=== PATIENT | male | born 1950 | race Caucasian/White ===

== ENCOUNTER 2017-01-20 15:15 | Emergency (ER) | payer MEDICARE, OTHER ==
[~2017-01-20] VITALS: Ht 172.7 cm; Wt 106.5 kg
[2017-01-20 15:18] VITALS: BP 112/46; PULSE 86; RESP 22; TEMP 98.8; O2SAT 98
[2017-01-20] MEDS ORDERED: METF500T PO (15:52)
[2017-01-20] MEDS ORDERED: PREG25 PO (15:52)
[2017-01-20 16:28] LABS: AUTOMATED NEUTROPHIL # 4.6 TH/MM3 (1.8-7.7); BASOPHIL % 0.3 % (0.0-2.0); EOSINOPHIL # 0.1 TH/MM3 (0-0.4); EOSINOPHIL % 1.6 % (0.0-4.0); LYMPH % 19.2 % (9.0-44.0); LYMPHOCYTE # 1.2 TH/MM3 (1.0-4.8); MEAN CELL VOLUME 90.2 FL (80.0-100.0); MEAN CORPUSCULAR HEMOGLOBIN 28.7 PG (27.0-34.0); MEAN CORPUSCULAR HGB CONC 31.8 % (32.0-36.0); MONO % 8.7 % (0.0-8.0); NEUT % 70.2 % (16.0-70.0); PLATELET COUNT 280 TH/MM3 (150-450); RED BLOOD COUNT 4.43 MIL/MM3 (4.50-5.90); RED CELL DISTRIBUTION WIDTH 13.9 % (11.6-17.2); WHITE BLOOD COUNT 6.5 TH/MM3 (4.0-11.0)
[2017-01-20 16:41] LABS: CHLORIDE 93 MEQ/L (98-107); POTASSIUM 4.2 MEQ/L (3.5-5.1); SODIUM (NA) 138 MEQ/L (136-145)
[2017-01-20 16:44] LABS: ANION GAP 1 MEQ/L (5-15); BICARBONATE 44.3 MEQ/L (21.0-32.0)
[2017-01-20 16:45] LABS: BLOOD UREA NITROGEN 15 MG/DL (7-18)
--- NOTE | 2017-01-20 16:45 | PD ---
HPI Chief Complaint: Fall Time Seen by Provider: 15:50 Travel History International Travel<30 days: No Contact w/Intl Traveler<30days: No Traveled to known affect area: No History of Present Illness HPI 66yo M with PMH of COPD on home O2 4L NC, DM, diabetic neuropathy presents to the ED with c/o left rib pain s/p fall yesterday. Pt was holding his oxygen tank and other things and tried to open the door at the same time but dropped his things and his left ribs fell onto a milk jug causing it to spill. Pt denies any head injury or LOC. He states he does feel a little more sob than normal. Denies any fever, cough, chest pain, n/v, abdominal pain, focal weakness or numbness. Pt has had lower ext swelling before but said his left leg became more swollen in the last few days. Denies any history of DVT or PE. Used to follow with convenience store clerk Dr. Bustillos. PFSH Past Medical History COPD: Yes Diabetes: Yes (type 2) Patient Takes Glucophage: Yes Diminished Hearing: No Hypertension: Yes Neurologic: Yes (NUEROPATHY) Respiratory: Yes (copd on oxygen at home) Immunizations Current: Yes Tetanus Vaccination: < 5 Years Influenza Vaccination: Yes Past Surgical History Abdominal Surgery: Yes (POLYPS REMOVED FROM INTESTINES) Social History Alcohol Use: No Tobacco Use: Yes (NOT EVERYDAY) Substance Use: No Allergies-Medications (Allergen,Severity, Reaction): Coded Allergies: No Known Allergies (Unverified , 01/20/17) Reported Meds & Prescriptions Reported Meds & Active Scripts Active Ibuprofen 600 Mg Tab 600 Mg PO Q8HR PRN Reported Lyrica (Pregabalin) 25 Mg Cap 25 Mg PO BID Metformin (Metformin HCl) 500 Mg Tab 500 Mg PO BIDPC With meals Review of Systems Except as stated in HPI: all other systems reviewed are Neg Physical Exam Narrative GENERAL: 66yo M not in distress. SKIN: Focused skin assessment warm/dry. HEAD: Atraumatic. Normocephalic. EYES: Pupils equal and round. No scleral icterus. No injection or drainage. ENT: No nasal bleeding or discharge. Mucous membranes pink and moist. NECK: Trachea midline. No JVD. CARDIOVASCULAR: Regular rate and rhythm. No murmur appreciated. RESPIRATORY: No accessory muscle use. Clear to auscultation. Breath sounds equal bilaterally. GASTROINTESTINAL: Abdomen soft, non-tender, nondistended. No rebound tenderness or guarding. MUSCULOSKELETAL: +TTP left lower rib. No ecchymoses or erythema. Bilateral lower ext: +Pitting edema, left more than right. DP 2+. Sensation intact. NEUROLOGICAL: Awake and alert. No obvious cranial nerve deficits. Motor grossly within normal limits. Normal speech. PSYCHIATRIC: Appropriate mood and affect; insight and judgment normal. Data Data Last Documented VS Vital Signs Date Time Temp Pulse Resp B/P Pulse Ox O2 Delivery O2 Flow Rate FiO2 01/20/17 15:18 98.8 86 22 112/46 98 Orders Ribs, Uni (W/Exp Cxr-Min 3vw) (01/20/17 ) Complete Blood Count With Diff (01/20/17 16:05) Comprehensive Metabolic Panel (01/20/17 16:05) B-Type Natriuretic Peptide (01/20/17 16:05) Prothrombin Time / Inr (Pt) (01/20/17 16:05) Act Partial Throm Time (Ptt) (01/20/17 16:05) Troponin I (01/20/17 16:05) Electrocardiogram (01/20/17 ) Us Leg Venous Doppler Bilat (01/20/17 ) Lidocaine 5% Patch.12 Hr (Lidoderm 5% Pa (01/20/17 17:45) Ketorolac Inj (Toradol Inj) (01/20/17 18:45) Labs Laboratory Tests Test 01/20/17 16:17 White Blood Count 6.5 TH/MM3 Red Blood Count 4.43 MIL/MM3 Hemoglobin 12.7 GM/DL Hematocrit 40.0 % Mean Corpuscular Volume 90.2 FL Mean Corpuscular Hemoglobin 28.7 PG Mean Corpuscular Hemoglobin 31.8 % Concent Red Cell Distribution Width 13.9 % Platelet Count 280 TH/MM3 Mean Platelet Volume 8.7 FL Neutrophils (%) (Auto) 70.2 % Lymphocytes (%) (Auto) 19.2 % Monocytes (%) (Auto) 8.7 % Eosinophils (%) (Auto) 1.6 % Basophils (%) (Auto) 0.3 % Neutrophils # (Auto) 4.6 TH/MM3 Lymphocytes # (Auto) 1.2 TH/MM3 Monocytes # (Auto) 0.6 TH/MM3 Eosinophils # (Auto) 0.1 TH/MM3 Basophils # (Auto) 0.0 TH/MM3 CBC Comment DIFF FINAL Differential Comment Prothrombin Time 10.7 SEC Prothromb Time International 1.0 RATIO Ratio Activated Partial 27.4 SEC Thromboplast Time Sodium Level 138 MEQ/L Potassium Level 4.2 MEQ/L Chloride Level 93 MEQ/L Carbon Dioxide Level 44.3 MEQ/L Anion Gap 1 MEQ/L Blood Urea Nitrogen 15 MG/DL Creatinine 0.50 MG/DL Estimat Glomerular Filtration 167 ML/MIN Rate Random Glucose 87 MG/DL Calcium Level 8.5 MG/DL Total Bilirubin 0.4 MG/DL Aspartate Amino Transf 20 U/L (AST/SGOT) Alanine Aminotransferase 29 U/L (ALT/SGPT) Alkaline Phosphatase 74 U/L Troponin I LESS THAN 0.02 NG/ML B-Type Natriuretic Peptide 30 PG/ML Total Protein 7.3 GM/DL Albumin 3.5 GM/DL MDM Medical Decision Making Medical Screen Exam Complete: Yes Emergency Medical Condition: Yes Interpretation(s) EKG: NSR 78bpm. Normal axis. RBBB. TWI III, aVF. Differential Diagnosis Rib fractures vs. PTX vs. pneumonia vs. COPD DVT vs. cellulitis vs. Bakers cyst vs. CHF vs. renal or liver dysfunction Narrative Course 66yo M with c/o left sided rib pain after mechanical fall yesterday. Labs reviewed, no leukocytosis. BNP normal. Troponin negative. CO2 elevated at 44.3 but pt has chronic COPD and this is likely his baseline. Pt is saturating at 98% on 4L NC and this is what he uses at home. No wheezing on exam. CXR showed left basal atelectasis. Multiple left sided rib fractures. Ordered lidoderm patch. Pt reevaluated at bedside and states he has old left rib fractures. He states that he is at his baseline sob and does not feel more sob than normal. US bilateral lower ext showed negative exam with no DVT. Return precautions given. Upon discharge, pt states he ran out of his oxycodone and will see his PMD in 2 days. Since he does have rib fractures, will give a few percocet. Diagnosis Primary Impression: Ribs, multiple fractures Qualified Code: S22.42XA - Closed fracture of multiple ribs of left side, initial encounter Patient Instructions: General Instructions Departure Forms: Tests/Procedures Additional Instructions: Please follow up with your PMD in 3-7 days. Return to the ED if symptoms worsen. Med/Other Pt SpecificInfo: Prescription(s) given Scripts Oxycodone-Acetaminophen (Percocet)5-325 mg Tab1 Tab PO Q6H PRN (PAIN) #7 TAB Ref 0 Prov:Sylvia Simmons DO 01/20/17 Ibuprofen 600 Mg [id number] Mg PO Q8HR PRN (PAIN) #20 TAB Ref 0 Prov:Sylvia Simmons DO 01/20/17 Disposition: 01 DISCHARGE HOME Condition: Stable Sylvia Simmons DO Jan 20, 2017 16:45
[2017-01-20 16:47] LABS: ALT (GPT) 29 U/L (12-78); APTT (PATIENT) 27.4 SEC (24.3-30.1); AST (GOT) 20 U/L (15-37); PROTHROMBIN TIME - PATIENT 10.7 SEC (9.8-11.6)
[2017-01-20 16:48] LABS: GLOMERULAR FILTRATION RATE 167 ML/MIN (>89); HEMO FLAGS DIFF FINAL
[2017-01-20 16:49] LABS: TOTAL BILIRUBIN ADULT 0.4 MG/DL (0.2-1.0)
[2017-01-20 16:50] LABS: ALKALINE PHOSPHATASE 74 U/L (45-117)
--- NOTE | 2017-01-20 17:19 | RADRPT ---
EXAM DATE/TIME: 01/20/2017 16:29 [facility] COMPARISON: No previous studies available for comparison. INDICATIONS : Fell, has pain left side chest MEDICAL HISTORY : Chronic obstructive pulmonary disease. Emphysema. SURGICAL HISTORY : None. ENCOUNTER: Initial ACUITY: 2 days PAIN SCORE: 2/10 LOCATION: Left chest FINDINGS: Multiple views of the left ribs were performed. There is no evidence of displaced fracture. No dest ructive lesions or areas of periosteal thickening are seen. Expiratory view of the chest is negative for pneumothorax. Left basilar density. Multiple left-sided rib fractures. CONCLUSION: Left basal atelectasis. Multiple left-sided rib fractures. Efren Murguia MD on January 20, 2017 at 17:16 Board Certified Radiologist. This report was verified electronically.
[2017-01-20] MEDS ORDERED: LIDOCAINE HCL 5% PATCH T-DERMAL ONE (17:45)
--- NOTE | 2017-01-20 18:31 | RADRPT ---
EXAM DATE/TIME: 01/20/2017 17:37 [facility] COMPARISON: No previous studies available for comparison. INDICATIONS : Bilateral leg edema. MEDICAL HISTORY : Chronic obstructive pulmonary disease. Hypertension. Nueropathy. Diabetes. SURGICAL HISTORY : Intestinal polyp removal. ENCOUNTER: Initial ACUITY: 3 days PAIN SCORE: 2/10 LOCATION: Bilateral legs. TECHNIQUE: Venous ultrasound of the left and right leg was performed from the inguinal ligament to the proximal calf. Real-time, color Doppler and spectral tracing, compression and augmentation techniques were us ed. FINDINGS: RIGHT LEG: There is normal compressibility of the deep venous system from the inguinal region to the proximal ca lf. No echogenic clot is seen in the lumen of the common femoral, femoral, popliteal, and posterior tibial veins. There is a normal response of the venous system to proximal and distal augmentation an d respiration. LEFT LEG: There is normal compressibility of the deep venous system from the inguinal region to the proximal ca lf. No echogenic clot is seen in the lumen of the common femoral, femoral, popliteal, and posterior tibial veins. There is a normal response of the venous system to proximal and distal augmentation an d respiration. CONCLUSION: Negative exam with no evidence of deep venous thrombosis. Carlos Gonzalez MD on January 20, 2017 at 18:29 Board Certified Radiologist. This report was verified electronically.
[2017-01-20] MEDS ORDERED: IBUP-232 PO (18:42)
[2017-01-20] MEDS ORDERED: KETOROLAC TROMETHAMINE 60 MG/2 ML (IM) VIAL IM ONE (18:45)
[2017-01-20] MEDS ORDERED: PERC5TAB12 PO (18:49)
[2017-01-20 19:05] VITALS: BP 116/52; PULSE 84; RESP 20; O2SAT 98
--- NOTE | 2017-01-20 21:45 | EKG ---
Date Performed: 01/20/2017 Time Performed: 17:08:18 PTAGE: 66 years EKG: Sinus rhythm WITH SHORT OR INTERVAL RIGHT BUNDLE BRANCH BLOCK ABNORMAL ECG INTERPRETATION BASED ON A DEFAULT AGE OF 40 YEARS NO PREVIOUS TRACING DOCTOR: Jaskaran Carreon Interpretating Date/Time 01/20/2017 21:44:03
== END 2017-01-20 19:25 | disposition home or self-care (01) ==
LOC: PHED 15:15
DX: S22.42XA Multiple fractures of ribs, left side, initial encounter for closed fracture (principal); J44.9 Chronic obstructive pulmonary disease, unspecified; I10 Essential (primary) hypertension; W19.XXXA Unspecified fall, initial encounter; Z72.0 Tobacco use; Z99.81 Dependence on supplemental oxygen
CPT/HCPCS: 71101; 80053; 83880; 84484; 85025; 85610; 85730; 93005; 93970; 96372; 99285; J1885

== ENCOUNTER 2017-03-21 06:55 | Inpatient (IN) | payer MEDICARE, OTHER ==
[2017-03-21] VITALS (15 sets, daily range): BP systolic 101–145; BP diastolic 50–63; PULSE 78–111; RESP 16–34; TEMP 98–98.8; O2SAT 72–97
[~2017-03-21] VITALS: Ht 177.8 cm; Wt 95.0 kg
[~2017-03-21 06:55] MED LIST: IBUP-232 PO; METF500T PO; PERC5TAB12 PO; PREG25 PO
[2017-03-21] MEDS ORDERED: methylPREDNISolone SOD SUCC 125 MG/2 ML VIAL IVP ONE (07:15)
[2017-03-21] MEDS: RESP: ALBUTEROL 2.5 MG/IPRATROPIUM 0.5 MG NEB (SCH) INH ×4 (07:23→21:02)
--- NOTE | 2017-03-21 07:48 | PD ---
HPI Chief Complaint: Respiratory Symptoms Time Seen by Provider: 07:08 Travel History International Travel<30 days: No Contact w/Intl Traveler<30days: No Traveled to known affect area: No History of Present Illness HPI This is a 66-year-old male who presents to the emergency department with a history of COPD on 6 L of oxygen at home who reports that he's been increasingly short of breath since this morning. He says he always has white and clear. Sputum production. He denies any fevers or chills. His symptoms are constant, worse with exertion and improved with rest. He also reported to the nurse [facility] which was [facility] and he was without oxygen for an hour. PFSH Past Medical History COPD: Yes Diabetes: Yes (type 2) Patient Takes Glucophage: No Diminished Hearing: No Hypertension: Yes Neurologic: Yes (NUEROPATHY) Respiratory: Yes Immunizations Current: Yes Influenza Vaccination: Yes Past Surgical History Abdominal Surgery: Yes (POLYPS REMOVED FROM INTESTINES) Social History Alcohol Use: Yes Tobacco Use: Yes (1 PACK PER WEEK) Substance Use: No Allergies-Medications (Allergen,Severity, Reaction): Coded Allergies: No Known Allergies (Unverified , 03/21/17) Reported Meds & Prescriptions Reported Meds & Active Scripts Active Percocet (Oxycodone-Acetaminophen) 5-325 mg Tab 1 Tab PO Q6H PRN Ibuprofen 600 Mg Tab 600 Mg PO Q8HR PRN Reported Metformin (Metformin HCl) 500 Mg Tab 500 Mg PO BIDPC With meals Review of Systems Except as stated in HPI: all other systems reviewed are Neg Physical Exam Narrative GENERAL:Chronically ill appearing SKIN: Focused skin assessment warm and dry. HEAD: Atraumatic. Normocephalic. EYES: Pupils equal and round. No injection or drainage. ENT: Moist mucous membranes NECK: Trachea midline. CARDIOVASCULAR: Regular rate and rhythm. No murmur appreciated. 2+ pitting edema of the bilateral lower extremities, legs are woody with thickened skin RESPIRATORY:Poor air movement, minimal wheezing GASTROINTESTINAL: Abdomen soft, non-tender, nondistended. MUSCULOSKELETAL: No obvious deformities. NEUROLOGICAL: Awake and alert. No obvious cranial nerve deficits. Moving all extremities. PSYCHIATRIC: Appropriate mood and affect; insight and judgment normal. Data Data Last Documented VS Vital Signs Date Time Temp Pulse Resp B/P (MAP) Pulse Ox O2 Delivery O2 Flow Rate FiO2 03/21/17 10:40 86 16 112/50 (70) 93 BiPAP 03/21/17 09:40 15.00 03/21/17 09:40 40 03/21/17 07:41 98.1 Orders Orders Complete Blood Count With Diff (03/21/17 07:12) Comprehensive Metabolic Panel (03/21/17 07:12) ^ Insert Iv (03/21/17 07:12) B-Type Natriuretic Peptide (03/21/17 07:12) Troponin I (03/21/17 07:12) Electrocardiogram (03/21/17 ) Chest, Single Ap (03/21/17 ) Electrocardiogram (03/21/17 07:12) Methylprednisolone So Succ Inj (Solumedr (03/21/17 07:15) Albuterol-Ipratropium Neb (Duoneb Neb) (03/21/17 07:15) Arterial Blood Gas (Abg) (03/21/17 ) Ceftriaxone Inj (Rocephin Inj) (03/21/17 09:45) Azithromycin Inj (Zithromax Inj) (03/21/17 09:45) Arterial Blood Gas (Abg) (03/21/17 ) Admit Order (Ed Use Only) (03/21/17 11:14) Labs Laboratory Tests Test 03/21/17 07:35 03/21/17 09:12 03/21/17 10:53 White Blood Count 10.6 TH/MM3 Red Blood Count 4.65 MIL/MM3 Hemoglobin 13.2 GM/DL Hematocrit 41.1 % Mean Corpuscular Volume 88.3 FL Mean Corpuscular Hemoglobin 28.4 PG Mean Corpuscular Hemoglobin Concent 32.1 % Red Cell Distribution Width 12.9 % Platelet Count 284 TH/MM3 Mean Platelet Volume 8.6 FL Neutrophils (%) (Auto) 77.3 % Lymphocytes (%) (Auto) 14.4 % Monocytes (%) (Auto) 6.0 % Eosinophils (%) (Auto) 0.3 % Basophils (%) (Auto) 2.0 % Neutrophils # (Auto) 8.3 TH/MM3 Lymphocytes # (Auto) 1.5 TH/MM3 Monocytes # (Auto) 0.6 TH/MM3 Eosinophils # (Auto) 0.0 TH/MM3 Basophils # (Auto) 0.2 TH/MM3 CBC Comment DIFF FINAL Differential Comment Blood Urea Nitrogen 19 MG/DL Creatinine 0.59 MG/DL Random Glucose 132 MG/DL Total Protein 8.0 GM/DL Albumin 3.8 GM/DL Calcium Level 9.6 MG/DL Alkaline Phosphatase 73 U/L Aspartate Amino Transf (AST/SGOT) 23 U/L Alanine Aminotransferase (ALT/SGPT) 18 U/L Total Bilirubin 0.8 MG/DL Sodium Level 135 MEQ/L Potassium Level 3.8 MEQ/L Chloride Level 86 MEQ/L Carbon Dioxide Level 43.0 MEQ/L Anion Gap 6 MEQ/L Estimat Glomerular Filtration Rate 138 ML/MIN Troponin I 0.02 NG/ML B-Type Natriuretic Peptide 23 PG/ML Blood Gas Puncture Site RT RADIAL LT RADIAL Blood Gas Patient Temperature 98.6 98.6 Blood Gas HCO3 47 mmol/L 46 mmol/L Blood Gas Base Excess 19.7 mmol/L 19.3 mmol/L Blood Gas Oxygen Saturation 88 % 88 % Arterial Blood pH 7.33 7.33 Arterial Blood Partial Pressure CO2 92 mmHG 90 mmHG Arterial Blood Partial Pressure O2 63 mmHG 65 mmHG Arterial Blood Oxygen Content 16.9 Vol % 16.3 Vol % Arterial Blood Carboxyhemoglobin 3.7 % 3.7 % Arterial Blood Methemoglobin 1.1 % 1.1 % Blood Gas Hemoglobin 13.7 G/DL 13.2 G/DL Oxygen Delivery Device NASAL CANNULA BIPAP Blood Gas Liter Flow 6 L/M Blood Gas Ventilator Setting IPAP 15/ EPAP 5 Blood Gas Inspired Oxygen 40 % [facility] Medical Decision Making Medical Screen Exam Complete: Yes Emergency Medical Condition: Yes Interpretation(s) Afebrile, no tachycardia, hypertensive, mild hypoxia No leukocytosis Bicarbonate is 43 consistent with chronic metabolic compensation in the setting of chronic respiratory acidosis Troponin is normal BNP is normal ABG: PCO2 is 92 with a normal pH suggesting chronic respiratory acidosis and chronic metabolic compensation Chest x-ray: Patchy infiltrates in the central and lateral left lung Differential Diagnosis COPD exacerbation, pneumonia, hypercarbic respiratory failure Narrative Course This is a 66-year-old male with a history of advanced COPD on 6 L of oxygen at home who presents to the emergency department with increasing shortness of breath after having run out of oxygen at home. He was confused on arrival but improved with oxygen. Labs are obtained which demonstrate an elevated bicarbonate. ABG demonstrates a PCO2 of 90 with a near-normal pH consistent with chronic respiratory acidosis. He is somewhat confused on exam, however he is able to articulate reasoning. At one point he wanted to leave AGAINST MEDICAL ADVICE. He took his BiPAP off and tried to walk across the room but got acutely dyspneic. He said he would agree to be admitted and he realized he wasn't able to drive home. Patient was given ceftriaxone and azithromycin in the setting of consolidation on chest x-ray. I spoke to Dr. Dupree and given this patient's metabolic derangement appears chronic she agrees to manage the patient in the intensive care unit on BiPAP. The patient tolerated BiPAP without difficulty. Critical Care Narrative Aggregate critical care time was 35 minutes. Time to perform other separately billable procedures was not included in the critical care time. My time did not include minutes spent treating any other patients simultaneously or on activities that did not directly contribute to the patient's treatment. The services I provided to this patient were to treat and/or prevent clinically significant deterioration that could result in: Disability, I provided critical care services requiring my management, as noted below: Chart data review, documentation time, medication orders and management, vital sign assessments/reviewing monitor data, ordering and reviewing lab tests, ordering and interpreting/reviewing x-rays and diagnostic studies, care of the patient and discussion of the patient with the admitting physicians. Physician Communication Physician Communication Discussed with Dr. Dupree Diagnosis Primary Impression: COPD (chronic obstructive pulmonary disease) Qualified Codes: J44.1 - Chronic obstructive pulmonary disease with (acute) exacerbation Admitting Information Admitting Physician Requests: it Johana Luz MD Mar 21, 2017 07:48
[2017-03-21 07:50] LABS: AUTOMATED NEUTROPHIL # 8.3 TH/MM3 (1.8-7.7); BASOPHIL # 0.2 TH/MM3 (0-0.2); EOSINOPHIL % 0.3 % (0.0-4.0); HEMATOCRIT 41.1 % (39.0-51.0); HEMO FLAGS DIFF FINAL; LYMPH % 14.4 % (9.0-44.0); LYMPHOCYTE # 1.5 TH/MM3 (1.0-4.8); MEAN CELL VOLUME 88.3 FL (80.0-100.0); MEAN CORPUSCULAR HEMOGLOBIN 28.4 PG (27.0-34.0); MEAN CORPUSCULAR HGB CONC 32.1 % (32.0-36.0); NEUT % 77.3 % (16.0-70.0); PLATELET COUNT 284 TH/MM3 (150-450); RED BLOOD COUNT 4.65 MIL/MM3 (4.50-5.90); RED CELL DISTRIBUTION WIDTH 12.9 % (11.6-17.2); WHITE BLOOD COUNT 10.6 TH/MM3 (4.0-11.0)
[2017-03-21 07:57] LABS: CHLORIDE 86 MEQ/L (98-107); POTASSIUM 3.8 MEQ/L (3.5-5.1); SODIUM (NA) 135 MEQ/L (136-145)
[2017-03-21 08:01] LABS: ANION GAP 6 MEQ/L (5-15)
[2017-03-21 08:02] LABS: BLOOD UREA NITROGEN 19 MG/DL (7-18)
[2017-03-21 08:04] LABS: ALT (GPT) 18 U/L (12-78)
[2017-03-21 08:05] LABS: AST (GOT) 23 U/L (15-37); GLOMERULAR FILTRATION RATE 138 ML/MIN (>89)
[2017-03-21 08:06] LABS: TOTAL BILIRUBIN ADULT 0.8 MG/DL (0.2-1.0)
[2017-03-21 08:07] LABS: ALKALINE PHOSPHATASE 73 U/L (45-117)
[2017-03-21 09:19] LABS: BLOOD GAS BASE EXCESS 19.7 mmol/L (-2-2); BLOOD GAS CARBOXYHEMOGLOBIN 3.7 % (0-4); BLOOD GAS HCO3 47 mmol/L (22-26); BLOOD GAS METHEMOGLOBIN 1.1 % (0-2); BLOOD GAS O2 HGB SATURATION 88 % (90-100); BLOOD GAS OXYGEN CONTENT 16.9 Vol % (12.0-20.0); BLOOD GAS PCO2 92 mmHG (38-42); BLOOD GAS PO2 63 mmHG (61-120); BLOOD GAS TOTAL HGB 13.7 G/DL (12.0-16.0); TEMP CORR TO 98.6
[2017-03-21 09:20] LABS: CRITICAL VALUE YES; DRAW SITE RT RADIAL; LITER FLOW 6 L/M; NUMBER OF ARTERIAL PUNCTURES 1; OXYGEN DEVICE NASAL CANNULA; STAT NO; ULNAR PULSE PRESENT
--- NOTE | 2017-03-21 09:29 | RADRPT ---
EXAM DATE/TIME: 03/21/2017 07:50 [facility] COMPARISON: No previous studies available for comparison. INDICATIONS : Short of breath. MEDICAL HISTORY : Chronic obstructive pulmonary disease. Hypertension Diabetes mellitus type II. neuropathy SURGICAL HISTORY : None. ENCOUNTER: Initial ACUITY: 1 day PAIN SCORE: 0/10 LOCATION: Bilateral chest FINDINGS: Submaximal inspiration with elevation of both hemidiaphragms. Patchy areas of infiltrate and left pe rihilar region and in the left costophrenic angle. Multiple healed left posterior rib fractures. Th e heart is normal size. CONCLUSION: Submaximal generation. Patchy infiltrates in the central and lateral left lung. Fam Ruiz MD on March 21, 2017 at 9:27 Board Certified Radiologist. This report was verified electronically.
[2017-03-21] MEDS ORDERED: AZITHROMYCIN INJ 500 MG in SODIUM CHLOR 0.9% 250 ML INJ 250 ML IV ONE (09:45)
[2017-03-21] MEDS ORDERED: cefTRIAXone INJ 1,000 MG in SODIUM CHLORIDE 0.9% INJ 100 ML IV ONE (09:45)
[2017-03-21 11:01] LABS: BLOOD GAS BASE EXCESS 19.3 mmol/L (-2-2); BLOOD GAS CARBOXYHEMOGLOBIN 3.7 % (0-4); BLOOD GAS HCO3 46 mmol/L (22-26); BLOOD GAS METHEMOGLOBIN 1.1 % (0-2); BLOOD GAS O2 HGB SATURATION 88 % (90-100); BLOOD GAS OXYGEN CONTENT 16.3 Vol % (12.0-20.0); BLOOD GAS PCO2 90 mmHG (38-42); BLOOD GAS PO2 65 mmHG (61-120); BLOOD GAS TOTAL HGB 13.2 G/DL (12.0-16.0); TEMP CORR TO 98.6
[2017-03-21 11:02] LABS: CRITICAL VALUE YES; DRAW SITE LT RADIAL; FIO2 40 %; NUMBER OF ARTERIAL PUNCTURES 1; OXYGEN DEVICE BIPAP; STAT YES; ULNAR PULSE PRESENT; VENT SETTINGS IPAP 15/ EPAP 5
[2017-03-21] MEDS ORDERED: ACETAMINOPHEN 325 MG TAB PO PRN (12:15)
[2017-03-21] MEDS ORDERED: AZITHROMYCIN 250 MG TAB PO SCH (12:15)
[2017-03-21] MEDS ORDERED: AZITHROMYCIN 250 MG TAB PO ONE (12:30)
[2017-03-21] MEDS: ENOXAPARIN SODIUM 40 MG/0.4 ML SYRINGE SQ SCH (13:00)
[2017-03-21] MEDS: methylPREDNISolone SOD SUCC 125 MG/2 ML VIAL IVP SCH ×2 (14:00→20:34)
[2017-03-21] MEDS ORDERED: CHLORHEXIDINE GLUCONATE 2 % 1 PACK (2 CLOTHS)(extra cloths) TOPICAL PRN (16:45)
[2017-03-21] MEDS ORDERED: GLUCAGON 1 MG/ML VIAL OTHER PRN (17:00)
[2017-03-21] MEDS ORDERED: DEXTROSE 50% IN WATER 50 ML VIAL(D50) IV PRN (17:00)
--- NOTE | 2017-03-21 17:19 | HHI.HP ---
cc: [facility] HPI Service [facility] Primary Care Physician [facility] Admission Diagnosis copd Diagnoses: (1) Chronic respiratory failure with hypoxia, on home O2 therapy Diagnosis: Principal (2) Respiratory acidosis Diagnosis: Principal (3) COPD exacerbation Diagnosis: Principal (4) Pneumonia Diagnosis: Principal (5) Hypochloremia Diagnosis: Principal Chief Complaint: "didn't have oxygen" Travel History International Travel<30 Days: No Contact w/Intl Traveler <30 Da: No Traveled to Known Affected Are: No History of Present Illness Written by Sepideh Zhang PA-C acting as scribe for Dr. Dupree on 03/21/17 at ~ 1640. Patient is a 66-year-old male with history of COPD on O2 at home, type 2 diabetes, hypertension, diabetic neuropathy who presents with complaint that he ran out of his oxygen. When asked how much oxygen he uses at home he states " as high as you can get it". It was reported that the patient uses 6 L at home. The patient states he goes to [facility]. He states there was a problem with the delivery of O2 and he was delivered empty tanks and hence ran out. He admits to a mild cough and states he had some foaming from his mouth but denies real sputum production. Denies any fevers or chills. He states he had some nausea but denies any vomiting. He admits to tingling in his toes which is chronic. RN reports the patient has been confused when taken off of bipap on NC but states he is improved from earlier. Review of Systems Except as stated in HPI: all other systems reviewed are Neg Past Family Social History Past Medical History COPD Type 2 diabetes Diabetic neuropathy Hypertension per EMR Past Surgical History Appendectomy 1960 Polyp removal from intestines per EMR Reported Medications Reported Meds & Active Scripts Percocet (Oxycodone-Acetaminophen) 5-325 mg Tab 1 Tab PO Q6H PRN Ibuprofen 600 Mg Tab 600 Mg PO Q8HR PRN Lyrica Metformin (Metformin HCl) 500 Mg Tab 500 Mg PO BIDPC With meals Gemfibrozil D3 B6 Allergies: Coded Allergies: No Known Allergies (Unverified , 03/21/17) Family History Father: in 1979 from pneumonia, had one lung. Mother: Epilepsy Social History Patient lives by himself with his cat. He states he smokes "once in a while"; uses a nicotine patch. Denies alcohol use. Physical Exam Vital Signs Vital Signs Date Time Temp Pulse Resp B/P (MAP) Pulse Ox O2 Delivery O2 Flow Rate FiO2 03/21/17 15:04 94 Nasal Cannula 6.00 03/21/17 12:50 03/21/17 12:37 94 40 03/21/17 12:35 86 22 137/59 (85) 92 BiPAP 40 03/21/17 10:40 86 16 112/50 (70) 93 BiPAP 03/21/17 10:10 88 16 145/53 (83) 94 BiPAP 03/21/17 09:40 40 BiPAP 15.00 03/21/17 09:40 90 40 03/21/17 07:41 98.1 94 24 101/62 (75) 97 Nasal Cannula 6.00 03/21/17 06:55 24 90 Nasal Cannula 6.00 03/21/17 06:55 98.1 111 24 130/60 (83) 72 Physical Exam GENERAL: This is a well-nourished, well-developed patient, in no apparent distress on Bipap when I enter the room. SKIN: Patient has blanching light erythema of both lower legs. HEAD: Atraumatic. Normocephalic. EYES: No scleral icterus. No injection or drainage. CARDIOVASCULAR: Regular rate and rhythm without murmurs, gallops, or rubs. RESPIRATORY: Crackles over the left base. GASTROINTESTINAL: Abdomen soft, non-tender, nondistended. No hepato-splenomegaly , or palpable masses. No guarding. MUSCULOSKELETAL: No notable edema of the lower extremities. NEUROLOGICAL: Awake and alert. He knows the day but does not know the month. Knows he is at the hospital. Motor grossly within normal limits. Normal speech. PSYCHIATRIC: Normal mood and affect. Laboratory Laboratory Tests Test 03/21/17 07:35 03/21/17 09:12 03/21/17 10:53 White Blood Count 10.6 Red Blood Count 4.65 Hemoglobin 13.2 Hematocrit 41.1 Mean Corpuscular Volume 88.3 Mean Corpuscular Hemoglobin 28.4 Mean Corpuscular Hemoglobin Concent 32.1 Red Cell Distribution Width 12.9 Platelet Count 284 Mean Platelet Volume 8.6 Neutrophils (%) (Auto) 77.3 Lymphocytes (%) (Auto) 14.4 Monocytes (%) (Auto) 6.0 Eosinophils (%) (Auto) 0.3 Basophils (%) (Auto) 2.0 Neutrophils # (Auto) 8.3 Lymphocytes # (Auto) 1.5 Monocytes # (Auto) 0.6 Eosinophils # (Auto) 0.0 Basophils # (Auto) 0.2 CBC Comment DIFF FINAL Differential Comment Blood Urea Nitrogen 19 Creatinine 0.59 Random Glucose 132 Total Protein 8.0 Albumin 3.8 Calcium Level 9.6 Alkaline Phosphatase 73 Aspartate Amino Transf (AST/SGOT) 23 Alanine Aminotransferase (ALT/SGPT) 18 Total Bilirubin 0.8 Sodium Level 135 Potassium Level 3.8 Chloride Level 86 Carbon Dioxide Level 43.0 Anion Gap 6 Estimat Glomerular Filtration Rate 138 Troponin I 0.02 B-Type Natriuretic Peptide 23 Blood Gas Puncture Site RT RADIAL LT RADIAL Blood Gas Patient Temperature 98.6 98.6 Blood Gas HCO3 47 46 Blood Gas Base Excess 19.7 19.3 Blood Gas Oxygen Saturation 88 88 Arterial Blood pH 7.33 7.33 Arterial Blood Partial Pressure CO2 92 90 Arterial Blood Partial Pressure O2 63 65 Arterial Blood Oxygen Content 16.9 16.3 Arterial Blood Carboxyhemoglobin 3.7 3.7 Arterial Blood Methemoglobin 1.1 1.1 Blood Gas Hemoglobin 13.7 13.2 Oxygen Delivery Device NASAL CANNULA BIPAP Blood Gas Liter Flow 6 Blood Gas Ventilator Setting IPAP 15/ EPAP 5 Blood Gas Inspired Oxygen 40 Result Diagram: 03/21/17 0735 03/21/17 0735 Imaging Last Impressions Chest X-Ray 03/21/17 0000 Signed Impressions: Service Date/Time: Tuesday, March 21, 2017 07:50 - CONCLUSION: Submaximal generation. Patchy infiltrates in the central and lateral left lung. MD Kin Robersoni VTE Risk Assessment Caprini VTE Risk Assessment: Mod/High Risk (score >= 2) Caprini Risk Assessment Model Point Value = 1 Point Value = 2 Point Value = 3 Point Value = 5 Age 41-60 Minor surgery BMI > 25 kg/m2 Swollen legs Varicose veins or History of unexplained or recurrent spontaneous Oral contraceptives or hormone replacement Sepsis (< 1 month) Serious lung disease, including pneumonia (< 1 month) Abnormal pulmonary function Acute myocardial infarction Congestive heart failure (< 1 month) History of inflammatory bowel disease Medical patient at bed rest Age 61-74 Arthroscopic surgery Major open surgery (> 45 min) Laparoscopic surgery (> 45 min) Malignancy Confined to bed (> 72 hours) Immobilizing plaster cast Central venous access Age >= 75 History of VTE Family history of VTE Factor V Leiden Prothrombin [id number] Lupus anticoagulant Anticardiolipin antibodies Elevated serum homocysteine Heparin-induced thrombocytopenia Other congenital or acquired thrombophilia Stroke (< 1 month) Elective arthroplasty Hip, pelvis, or leg fracture Acute spinal cord injury (< 1 month) Prophylaxis Regimen Total Risk Factor Score Risk Level Prophylaxis Regimen 0-1 Low Early ambulation 2 Moderate Order ONE of the following: *Sequential Compression Device (SCD) *Heparin 5000 units SQ BID 3-4 Higher Order ONE of the following medications: *Heparin 5000 units SQ TID *Enoxaparin/Lovenox 40 mg SQ daily (WT < 150 kg, CrCl > 30 mL/min) *Enoxaparin/Lovenox 30 mg SQ daily (WT < 150 kg, CrCl > 10-29 mL/min) *Enoxaparin/Lovenox 30 mg SQ BID (WT < 150 kg, CrCl > 30 mL/min) AND/OR *Sequential Compression Device (SCD) 5 or more Highest Order ONE of the following medications: *Heparin 5000 units SQ TID (Preferred with Epidurals) *Enoxaparin/Lovenox 40 mg SQ daily (WT < 150 kg, CrCl > 30 mL/min) *Enoxaparin/Lovenox 30 mg SQ daily (WT < 150 kg, CrCl > 10-29 mL/min) *Enoxaparin/Lovenox 30 mg SQ BID (WT < 150 kg, CrCl > 30 mL/min) AND *Sequential Compression Device (SCD) Assessment and Plan Assessment and Plan 66-year-old male with: Acute on Chronic respiratory failure with hypoxia, respiratory acidosis COPD exacerbation/pneumonia -Patient has COPD and uses 6 L at home, ran out of oxygen. Initial ABG with pH of 7.33 and elevated PCO2 of 92 with O2 saturation 88% on 6 L nasal cannula. Respiratory acidosis is likely chronic. Chest x-ray with patchy infiltrates in the central and lateral left lung; I reviewed the images. Afebrile. No leukocytosis. -Respiratory therapy following. Continue BiPAP as needed, transition to nasal cannula as tolerated. -Continue azithromycin and ceftriaxone -DuoNeb's every 6 hours -Solu-Medrol 60 mg every 6 hours IV -Pulmonology consulted Hypochloremia: Likely related to respiratory acidosis. -Monitor BMP Type 2 diabetes: -Hold oral meds -Bedside Accu-Cheks with low dose sliding scale insulin DVT prophylaxis: Lovenox 40 mg sq daily. Physician Certification 2 Midnight Certification Type: Admission for Inpatient Services Order for Inpatient Services The services are ordered in accordance with Medicare regulations or non- Medicare payer requirements, as applicable. In the case of services not specified as inpatient-only, they are appropriately provided as inpatient services in accordance with the 2-midnight benchmark. Estimated LOS (days): 2 days is the estimated time the patient will need to remain in the hospital, assuming treatment plan goals are met and no additional complications. Post-Hospital Plan: Not yet determined Addendum to Inpatient Note Additional Information This note was transcribed by jeff Zhang. I, Dr. Linn Dupree personally performed the history, physical exam, and medical decision making; and confirmed the accuracy of the information in the transcribed note. Authenticated by Dr. Linn Dupree on 03/21/17 at 17:45. Sepideh Zhang Mar 21, 2017 17:19 Linn Dupree MD Mar 21, 2017 17:45
[2017-03-21 17:23] LABS: BLOOD GAS BASE EXCESS 19.5 mmol/L (-2-2); BLOOD GAS CARBOXYHEMOGLOBIN 3.1 % (0-4); BLOOD GAS HCO3 46 mmol/L (22-26); BLOOD GAS O2 HGB SATURATION 90 % (90-100); BLOOD GAS OXYGEN CONTENT 15.9 Vol % (12.0-20.0); BLOOD GAS PCO2 82 mmHG (38-42); BLOOD GAS PO2 67 mmHG (61-120); BLOOD GAS TOTAL HGB 12.6 G/DL (12.0-16.0); TEMP CORR TO 98.6
[2017-03-21 17:25] LABS: CRITICAL VALUE YES; DRAW SITE RT RADIAL; LITER FLOW 6 L/M; NUMBER OF ARTERIAL PUNCTURES 1; ULNAR PULSE PRESENT
[2017-03-21 17:26] LABS: OXYGEN DEVICE NASAL CANNULA; STAT NO
[2017-03-21] MEDS: SODIUM CHLORIDE 0.9% FLUSH 10 ML FLUSH IV FLUSH SCH (20:34)
[2017-03-21] MEDS: acetaZOLAMIDE 250 MG TAB PO SCH (20:40)
[2017-03-21] MEDS: INSULIN ASPART SUPPLEMENTAL SCALE SQ SCH (20:43)
[2017-03-22] VITALS (22 sets, daily range): BP systolic 104–138; BP diastolic 55–76; PULSE 68–100; RESP 14–53; TEMP 97.6–98.7; O2SAT 90–97
[2017-03-22] MEDS: SODIUM CHLORIDE 0.9% FLUSH 10 ML FLUSH IV FLUSH PRN (01:48)
[2017-03-22] MEDS: methylPREDNISolone SOD SUCC 125 MG/2 ML VIAL IVP SCH ×3 (01:48→13:53)
[2017-03-22] MEDS: CHLORHEXIDINE GLUCONATE 2 % 1 PACK (2 CLOTHS)(taper/protocol) TOPICAL SCH (02:00)
[2017-03-22] MEDS: RESP: ALBUTEROL 2.5 MG/IPRATROPIUM 0.5 MG NEB (SCH) INH ×4 (03:56→22:01)
[2017-03-22 04:39] LABS: AUTOMATED NEUTROPHIL # 6.9 TH/MM3 (1.8-7.7); BASOPHIL # 0.1 TH/MM3 (0-0.2); BASOPHIL % 1.5 % (0.0-2.0); EOSINOPHIL % 0.1 % (0.0-4.0); HEMATOCRIT 40.3 % (39.0-51.0); HEMO FLAGS DIFF FINAL; LYMPH % 8.1 % (9.0-44.0); LYMPHOCYTE # 0.6 TH/MM3 (1.0-4.8); MEAN CELL VOLUME 88.4 FL (80.0-100.0); MEAN CORPUSCULAR HEMOGLOBIN 28.6 PG (27.0-34.0); MEAN CORPUSCULAR HGB CONC 32.4 % (32.0-36.0); MONO % 0.7 % (0.0-8.0); NEUT % 89.6 % (16.0-70.0); PLATELET COUNT 255 TH/MM3 (150-450); RED BLOOD COUNT 4.55 MIL/MM3 (4.50-5.90); RED CELL DISTRIBUTION WIDTH 12.9 % (11.6-17.2); WHITE BLOOD COUNT 7.7 TH/MM3 (4.0-11.0)
[2017-03-22 04:51] LABS: POTASSIUM 3.7 MEQ/L (3.5-5.1)
[2017-03-22 04:56] LABS: BICARBONATE 38.7 MEQ/L (21.0-32.0)
[2017-03-22] MEDS: INSULIN ASPART SUPPLEMENTAL SCALE SQ SCH ×4 (07:00→20:00)
--- NOTE | 2017-03-22 07:19 | MB ---
cc: [facility] DATE OF CONSULTATION 03/21/[address] Dupree REASON FOR CONSULTATION Respiratory insufficiency HISTORY OF PRESENT ILLNESS Mr. Amador is a pleasant 66-year-old male with who has a longstanding history of COPD that is oxygen dependent. He ran out of his oxygen and became more short of breath. He did not have any chest pain. He did not have any fever or chills. There is no night sweats. Because of worsening of his symptoms, he came to the hospital. He had a workup done. His blood gas showed a pH 7.33, pCO2 92, pO2 63, bicarb 47. He was started on BiPap. Repeat blood gas pH 7.37, pCO2 18, pO2 67. His CBC showed WBC count of 10.6, hemoglobin 13.2, hematocrit 41, MCV 88.4. Sodium 131, potassium 3.8, chloride 86, CO2 43, BUN 19, creatinine 0.59. His chest x-ray shows he has patchy infiltrate in the left lung. PAST MEDICAL HISTORY His past medical history is significant for: 1. A long-standing history of COPD 2. Hypertension 3. Diabetes mellitus 4. Diabetic neuropathy MEDICATIONS He is currently takin. Rocephin one gram a day 2. Zithromax 250 mg a day 3. Albuterol/Atrovent nebulizer treatments 4. Solu-Medrol 60 mg q. 6-hour 5. Lovenox 40 mg a day ALLERGIES NO KNOWN DRUG ALLERGIES. SOCIAL HISTORY He is single. He has been before. He has a long history of smoking and continues to smoke. No alcohol abuse. He used to work as TV repairman and boiler installer. REVIEW OF SYSTEMS Normally he is up, around, and active. He follows at [facility] with Dr. Newton. No seizure, stroke or epilepsy. PHYSICAL EXAM This is a well-built, well-nourished male mildly short of breath. VITAL SIGNS: Blood pressure 105/65, pulse 100, respirations 20, temperature 98. HEENT: Pupils are equal and reactive. Oral mucosa and nasal mucosa normal. NECK: JVP not raised. CHEST: Equal entry. He has expiratory rhonchi. CARDIOVASCULAR: S1 and S2 normal. ABDOMEN: Benign. EXTREMITIES: No edema. IMPRESSION 1. Hypercapnic respiratory failure 2. COPD exacerbation 3. Pneumonia 4. Nicotine use 5. Diabetes mellitus 6. Hypertension PLAN We will give him antibiotic Rocephin and Zithromax, IV Solu-Medrol and aerosol treatment with Atrovent. Start him on Symbicort and also start him on Diamox 250 mg a day. He will use C-PAP at nighttime and as needed. Supplement oxygen to keep the saturation between 88-92%. Further treatment will depend upon the course in the hospital. Thank you, Dr. Dupree for this consultation. MD NAPOLEON Lozoya/JI /6:56 PM /6:57 AM MTDHarlan
[2017-03-22] MEDS: AZITHROMYCIN 250 MG TAB PO SCH (08:32)
[2017-03-22] MEDS: SODIUM CHLORIDE 0.9% FLUSH 10 ML FLUSH IV FLUSH SCH ×2 (08:39→20:00)
[2017-03-22] MEDS: acetaZOLAMIDE 250 MG TAB PO SCH (08:49)
[2017-03-22] MEDS ORDERED: INFLUENZA VIRUS VACCINE (QUADRIVALENT) 0.5 ML SYR IM ONE (10:00)
[2017-03-22] MEDS: ALPRAZolam 0.25 MG TAB PO PRN ×2 (10:19→23:49)
--- NOTE | 2017-03-22 11:51 | HHI.PR ---
Subjective Remarks Tolerating BiPAP overnight. Was on 6 L nasal cannula is morning. Alert and oriented but has difficulty following commands at times per the nurse. Patient placed back on BiPAP after complaining of some shortness of breath after breakfast. Objective Vitals Vital Signs Date Time Temp Pulse Resp B/P (MAP) Pulse Ox O2 Delivery O2 Flow Rate FiO2 03/22/17 11:35 93 35 03/22/17 10:00 76 35 120/62 (81) 92 03/22/17 09:39 93 35 03/22/17 09:00 78 31 130/64 (86) 92 03/22/17 08:00 92 Nasal Cannula 6.00 03/22/17 08:00 97.6 76 32 119/64 (82) 92 03/22/17 07:50 95 Nasal Cannula 6.00 03/22/17 05:00 72 27 124/76 (92) 91 03/22/17 04:00 91 Bi-Pap 35 03/22/17 04:00 98.0 70 14 116/69 (85) 91 03/22/17 03:00 94 Bi-Pap 35 03/22/17 03:00 96 35 03/22/17 03:00 76 23 120/70 (87) 93 03/22/17 02:00 70 18 114/68 (83) 94 03/22/17 01:24 93 40 03/22/17 01:01 80 42 125/61 (82) 93 03/22/17 00:00 98.6 76 14 104/60 (75) 90 03/21/17 21:01 96 40 03/21/17 20:00 86 40 03/21/17 20:00 86 Bi-Pap 40 03/21/17 20:00 98.8 78 29 119/59 (79) 92 03/21/17 19:47 97 30 03/21/17 19:45 97 Bi-Pap 30 03/21/17 19:30 94 40 03/21/17 19:30 93 Bi-Pap 40 03/21/17 19:28 93 Nasal Cannula 6.00 03/21/17 19:00 93 Nasal Cannula 6.00 03/21/17 19:00 90 34 112/63 (79) 93 03/21/17 16:00 98.0 100 24 105/60 (75) 90 03/21/17 15:04 94 Nasal Cannula 6.00 03/21/17 12:50 03/21/17 12:37 94 40 03/21/17 12:35 86 22 137/59 (85) 92 BiPAP 40 I/O 03/21/17 03/21/17 03/21/17 03/22/17 03/22/17 03/22/17 07:00 15:00 23:00 07:00 15:00 23:00 Intake Total 350 ml 460 ml Output Total 300 ml 1650 ml Balance 350 ml -300 ml -1190 ml Intake Oral 460 ml IV Total 350 ml Output Urine Total 300 ml 1650 ml # Voids 1 1 # Bowel Movements 1 0 Result Diagram: 03/22/1742903/22/17429 Objective Remarks GENERAL: Well-nourished, well-developed patient wearing BiPAP. SKIN: Warm and dry. HEAD: Normocephalic. EYES: No scleral icterus. No injection or drainage. NECK: Supple, trachea midline. No JVD or lymphadenopathy. CARDIOVASCULAR: Regular rate and rhythm without murmurs, gallops, or rubs. RESPIRATORY: Breath sounds equal bilaterally. No accessory muscle use. GASTROINTESTINAL: Abdomen soft, non-tender, nondistended. EXTREMITIES: No cyanosis, or edema. A/P Problem List: (1) Chronic respiratory failure with hypoxia, on home O2 therapy ICD Code: J96.11 - Chronic respiratory failure with hypoxia; Z99.81 - Dependence on supplemental oxygen (2) Respiratory acidosis ICD Code: E87.2 - Acidosis (3) COPD exacerbation ICD Code: J44.1 - Chronic obstructive pulmonary disease with (acute) exacerbation (4) Pneumonia ICD Code: J18.9 - Pneumonia, unspecified organism (5) Hypochloremia ICD Code: E87.8 - Other disorders of electrolyte and fluid balance, not elsewhere classified Assessment and Plan 66-year-old male with: Acute on Chronic respiratory failure with hypoxia and hypercapnia, respiratory acidosis COPD exacerbation/pneumonia -Patient has COPD and uses 6 L at home, ran out of oxygen. Initial ABG with pH of 7.33 and elevated PCO2 of 92 with O2 saturation 88% on 6 L nasal cannula. Respiratory acidosis improved this morning. Chest x-ray with patchy infiltrates in the central and lateral left lung. Afebrile. No leukocytosis. -Respiratory therapy following. Continue BiPAP as needed, transition to nasal cannula as tolerated. -Continue azithromycin and ceftriaxone -DuoNeb's every 6 hours -Solu-Medrol 60 mg every 6 hours IV -Pulmonology following Hypochloremia: Likely related to respiratory acidosis. -Monitor BMP Type 2 diabetes: -Hold oral meds -Bedside Accu-Cheks with low dose sliding scale insulin DVT prophylaxis: Lovenox 40 mg sq daily. Linn Dupree MD Mar 22, 2017 11:51
[2017-03-22] MEDS: ENOXAPARIN SODIUM 40 MG/0.4 ML SYRINGE SQ SCH (13:54)
[2017-03-22] MEDS: cefTRIAXone INJ 1,000 MG in SODIUM CHLORIDE 0.9% INJ 100 ML IV SCH (13:54)
--- NOTE | 2017-03-22 18:10 | HHI.PR ---
Subjective Remarks 66 YOWM with COPD,DM,HTN used CPAp last night Up in chair no fever No CP Objective Vital Signs Vital Signs Date Time Temp Pulse Resp B/P (MAP) Pulse Ox O2 Delivery O2 Flow Rate FiO2 03/22/17 18:00 98.7 100 53 117/72 (87) 94 03/22/17 16:00 72 33 119/67 (84) 93 03/22/17 14:00 82 32 138/63 (88) 91 03/22/17 12:30 91 Nasal Cannula 6.00 03/22/17 12:00 98.7 70 20 114/64 (81) 93 03/22/17 11:35 93 35 03/22/17 10:00 76 35 120/62 (81) 92 03/22/17 09:45 92 Bi-Pap 35 03/22/17 09:39 93 35 03/22/17 09:00 78 31 130/64 (86) 92 03/22/17 08:00 92 Nasal Cannula 6.00 03/22/17 08:00 68 03/22/17 08:00 97.6 76 32 119/64 (82) 92 03/22/17 07:50 95 Nasal Cannula 6.00 03/22/17 05:00 72 27 124/76 (92) 91 03/22/17 04:00 91 Bi-Pap 35 03/22/17 04:00 98.0 70 14 116/69 (85) 91 03/22/17 03:00 94 Bi-Pap 35 03/22/17 03:00 96 35 03/22/17 03:00 76 23 120/70 (87) 93 03/22/17 02:00 70 18 114/68 (83) 94 03/22/17 01:24 93 40 03/22/17 01:01 80 42 125/61 (82) 93 03/22/17 00:00 98.6 76 14 104/60 (75) 90 03/21/17 21:01 96 40 03/21/17 20:00 86 40 03/21/17 20:00 86 Bi-Pap 40 03/21/17 20:00 98.8 78 29 119/59 (79) 92 03/21/17 19:47 97 30 03/21/17 19:45 97 Bi-Pap 30 03/21/17 19:30 94 40 03/21/17 19:30 93 Bi-Pap 40 03/21/17 19:28 93 Nasal Cannula 6.00 03/21/17 19:00 93 Nasal Cannula 6.00 03/21/17 19:00 90 34 112/63 (79) 93 I/O 03/21/17 03/21/17 03/21/17 03/22/17 03/22/17 03/22/17 07:00 15:00 23:00 07:00 15:00 23:00 Intake Total 350 ml 460 ml 120 ml Output Total 300 ml 1650 ml Balance 350 ml -300 ml -1190 ml 120 ml Intake Oral 460 ml IV Total 350 ml 120 ml Output Urine Total 300 ml 1650 ml # Voids 1 1 # Bowel Movements 1 0 Result Diagram: 03/22/1742903/22/17429 Objective Remarks GENERAL: MBMN WM mild sob SKIN: Warm and dry. HEAD: Normocephalic. EYES: No scleral icterus. No injection or drainage. NECK: Supple, trachea midline. No JVD or lymphadenopathy. CARDIOVASCULAR: Regular rate and rhythm without murmurs, gallops, or rubs. RESPIRATORY: Breath sounds equal bilaterally. No accessory muscle use. GASTROINTESTINAL: Abdomen soft, non-tender, nondistended. MUSCULOSKELETAL: No cyanosis, or edema. BACK: Nontender without obvious deformity. No CVA tenderness. A/P Assessment and Plan Hypercapnoic RF improving COPD exac Pneumonia DM HTN PLAN: CPAP at night and prn Supplement 02 to keep sat 88-92% Decrease Solumedrol 40 mg q 8 hrs Cont Abx monitor Alon Estrada MD Mar 22, 2017 18:10
[2017-03-22] MEDS: methylPREDNISolone SOD SUCC 40 MG/1 ML VIAL IV SCH (21:19)
[2017-03-23] VITALS (12 sets, daily range): BP systolic 100–127; BP diastolic 58–77; PULSE 58–84; RESP 19–41; TEMP 98.3–99.3; O2SAT 82–99
[2017-03-23] MEDS: CHLORHEXIDINE GLUCONATE 2 % 1 PACK (2 CLOTHS)(taper/protocol) TOPICAL SCH (04:00)
[2017-03-23] MEDS: RESP: ALBUTEROL 2.5 MG/IPRATROPIUM 0.5 MG NEB (SCH) INH ×4 (04:07→21:25)
[2017-03-23] MEDS: methylPREDNISolone SOD SUCC 40 MG/1 ML VIAL IV SCH ×3 (05:03→20:01)
[2017-03-23] MEDS: SODIUM CHLORIDE 0.9% FLUSH 10 ML FLUSH IV FLUSH PRN ×2 (05:04→12:10)
[2017-03-23] MEDS: INSULIN ASPART SUPPLEMENTAL SCALE SQ SCH ×4 (06:22→20:04)
[2017-03-23] MEDS: acetaZOLAMIDE 250 MG TAB PO SCH (07:56)
[2017-03-23] MEDS: SODIUM CHLORIDE 0.9% FLUSH 10 ML FLUSH IV FLUSH SCH ×2 (07:56→20:01)
[2017-03-23] MEDS: AZITHROMYCIN 250 MG TAB PO SCH (07:56)
[2017-03-23] MEDS: cefTRIAXone INJ 1,000 MG in SODIUM CHLORIDE 0.9% INJ 100 ML IV SCH (12:11)
[2017-03-23] MEDS ORDERED: REST0.05 EACH EYE (12:15)
[2017-03-23] MEDS: ENOXAPARIN SODIUM 40 MG/0.4 ML SYRINGE SQ SCH (13:24)
--- NOTE | 2017-03-23 13:54 | HHI.PR ---
Subjective Remarks Patient is doing well, weaned to 4 L nasal cannula oxygen. No further confusion. Denies cough or dyspnea. Afebrile. Objective Vitals Vital Signs Date Time Temp Pulse Resp B/P (MAP) Pulse Ox O2 Delivery O2 Flow Rate FiO2 03/23/17 13:28 95 Nasal Cannula 4.00 03/23/17 12:00 98.4 64 28 106/60 (75) 99 03/23/17 11:00 95 Nasal Cannula 5.00 03/23/17 08:00 58 03/23/17 08:00 98.5 78 36 126/77 (93) 95 03/23/17 07:46 Nasal Cannula 6.00 03/23/17 07:40 94 Nasal Cannula 6.00 03/23/17 04:24 98.6 64 22 105/65 (78) 91 03/23/17 04:07 92 35 03/23/17 01:00 92 Bi-Pap 35 03/23/17 00:25 94 35 03/23/17 00:25 96 Bi-Pap 35 03/23/17 00:01 98.4 68 29 117/64 (81) 96 03/22/17 23:00 70 27 119/65 (83) 96 03/22/17 22:00 70 27 122/62 (82) 97 03/22/17 21:00 76 39 114/55 (74) 95 03/22/17 20:00 98.3 80 39 118/59 (78) 94 03/22/17 20:00 80 03/22/17 19:29 92 Nasal Cannula 6.00 03/22/17 19:00 96 Nasal Cannula 6.00 03/22/17 18:00 98.7 100 53 117/72 (87) 94 03/22/17 16:00 72 33 119/67 (84) 93 03/22/17 14:00 82 32 138/63 (88) 91 I/O 03/22/17 03/22/17 03/22/17 03/23/17 03/23/17 03/23/17 07:00 15:00 23:00 07:00 15:00 23:00 Intake Total 460 ml 840 ml 540 ml 100 ml Output Total 1650 ml 1300 ml 1000 ml 200 ml Balance -1190 ml -460 ml -460 ml -100 ml Intake Oral 460 ml 720 ml 540 ml IV Total 120 ml 100 ml Output Urine Total 1650 ml 1300 ml 1000 ml 200 ml # Voids 1 # Bowel Movements 0 0 0 Result Diagram: 03/22/1742903/22/17429 Objective Remarks GENERAL: Well-nourished, well-developed male patient in no apparent distress SKIN: Warm and dry. HEAD: Normocephalic. EYES: No scleral icterus. No injection or drainage. NECK: Supple, trachea midline. No JVD or lymphadenopathy. CARDIOVASCULAR: Regular rate and rhythm without murmurs, gallops, or rubs. RESPIRATORY: Breath sounds equal bilaterally. Mild end expiratory wheeze. No accessory muscle use. GASTROINTESTINAL: Abdomen soft, non-tender, nondistended. EXTREMITIES: No cyanosis, or edema. Neurological: Awake alert and oriented. A/P Problem List: (1) Chronic respiratory failure with hypoxia, on home O2 therapy ICD Code: J96.11 - Chronic respiratory failure with hypoxia; Z99.81 - Dependence on supplemental oxygen (2) Respiratory acidosis ICD Code: E87.2 - Acidosis (3) COPD exacerbation ICD Code: J44.1 - Chronic obstructive pulmonary disease with (acute) exacerbation (4) Pneumonia ICD Code: J18.9 - Pneumonia, unspecified organism (5) Hypochloremia ICD Code: E87.8 - Other disorders of electrolyte and fluid balance, not elsewhere classified Assessment and Plan 66-year-old male with: Acute on Chronic respiratory failure with hypoxia and hypercapnia, respiratory acidosis - much improved. Status post BiPAP. COPD exacerbation/with left-sided pneumonia -Patient has COPD and uses 6 L at home, ran out of oxygen at home prompting his drive to the hospital. -Pulmonology following. Continue BiPAP. -Continue azithromycin and ceftriaxone -DuoNeb's every 6 hours -Solu-Medrol 60 mg every 6 hours IV Type 2 diabetes: -Hold oral meds -Bedside Accu-Cheks with low dose sliding scale insulin DVT prophylaxis: Lovenox 40 mg sq daily. Transfer to [facility] floor. Linn Dupree MD Mar 23, 2017 13:54
--- NOTE | 2017-03-23 14:27 | HHI.PR ---
Subjective Remarks 66 YOWM with COPD,DM,HTN used CPAP last night Up in chair no fever No CP Weaned to 4LNC Objective Vital Signs Vital Signs Date Time Temp Pulse Resp B/P (MAP) Pulse Ox O2 Delivery O2 Flow Rate FiO2 03/23/17 13:28 95 Nasal Cannula 4.00 03/23/17 12:00 98.4 64 28 106/60 (75) 99 03/23/17 11:00 95 Nasal Cannula 5.00 03/23/17 08:00 58 03/23/17 08:00 98.5 78 36 126/77 (93) 95 03/23/17 07:46 Nasal Cannula 6.00 03/23/17 07:40 94 Nasal Cannula 6.00 03/23/17 04:24 98.6 64 22 105/65 (78) 91 03/23/17 04:07 92 35 03/23/17 01:00 92 Bi-Pap 35 03/23/17 00:25 94 35 03/23/17 00:25 96 Bi-Pap 35 03/23/17 00:01 98.4 68 29 117/64 (81) 96 03/22/17 23:00 70 27 119/65 (83) 96 03/22/17 22:00 70 27 122/62 (82) 97 03/22/17 21:00 76 39 114/55 (74) 95 03/22/17 20:00 98.3 80 39 118/59 (78) 94 03/22/17 20:00 80 03/22/17 19:29 92 Nasal Cannula 6.00 03/22/17 19:00 96 Nasal Cannula 6.00 03/22/17 18:00 98.7 100 53 117/72 (87) 94 03/22/17 16:00 72 33 119/67 (84) 93 I/O 03/22/17 03/22/17 03/22/17 03/23/17 03/23/17 03/23/17 07:00 15:00 23:00 07:00 15:00 23:00 Intake Total 460 ml 840 ml 540 ml 100 ml Output Total 1650 ml 1300 ml 1000 ml 200 ml Balance -1190 ml -460 ml -460 ml -100 ml Intake Oral 460 ml 720 ml 540 ml IV Total 120 ml 100 ml Output Urine Total 1650 ml 1300 ml 1000 ml 200 ml # Voids 1 # Bowel Movements 0 0 0 Result Diagram: 03/22/1742903/22/17429 Objective Remarks GENERAL: MBMN WM mild sob SKIN: Warm and dry. HEAD: Normocephalic. EYES: No scleral icterus. No injection or drainage. NECK: Supple, trachea midline. No JVD or lymphadenopathy. CARDIOVASCULAR: Regular rate and rhythm without murmurs, gallops, or rubs. RESPIRATORY: Breath sounds equal bilaterally. No accessory muscle use. GASTROINTESTINAL: Abdomen soft, non-tender, nondistended. MUSCULOSKELETAL: No cyanosis, or edema. BACK: Nontender without obvious deformity. No CVA tenderness. A/P Assessment and Plan Hypercapnoic RF improving COPD exac Pneumonia DM HTN PLAN: CPAP at night and prn Supplement 02 to keep sat 88-92% Solumedrol 40 mg q 8 hrs Cont Abx monitor BS Saline NS Dr.Wahba trejo until Sunday Alon Mendez MD Mar 23, 2017 14:27
[2017-03-23] MEDS ORDERED: SODIUM CHLORIDE 0.65% NASAL SPRAY 45 ML BTL EACH NARE PRN (14:30)
[2017-03-23] MEDS: metFORMIN HCL 500 MG TAB PO SCH (17:17)
[2017-03-23] MEDS: ALPRAZolam 0.25 MG TAB PO PRN (20:01)
[2017-03-23] MEDS: PREGABALIN 25 MG CAP PO SCH (20:01)
[2017-03-23] MEDS: NICOTINE 21 MG/24 HR PATCH T-DERMAL SCH (20:39)
[2017-03-24] VITALS (10 sets, daily range): BP systolic 102–125; BP diastolic 54–65; PULSE 60–80; RESP 22–34; TEMP 97.8–99.3; O2SAT 94–98
[2017-03-24] MEDS: RESP: ALBUTEROL 2.5 MG/IPRATROPIUM 0.5 MG NEB (SCH) INH ×4 (03:49→21:22)
[2017-03-24] MEDS: CHLORHEXIDINE GLUCONATE 2 % 1 PACK (2 CLOTHS)(taper/protocol) TOPICAL SCH (04:00)
[2017-03-24] MEDS: methylPREDNISolone SOD SUCC 40 MG/1 ML VIAL IV SCH ×3 (06:26→21:53)
[2017-03-24] MEDS: INSULIN ASPART SUPPLEMENTAL SCALE SQ SCH ×4 (06:29→21:55)
[2017-03-24] MEDS: PREGABALIN 25 MG CAP PO SCH ×2 (08:36→21:53)
[2017-03-24] MEDS: acetaZOLAMIDE 250 MG TAB PO SCH (08:36)
[2017-03-24] MEDS: metFORMIN HCL 500 MG TAB PO SCH ×2 (08:36→18:10)
[2017-03-24] MEDS: SODIUM CHLORIDE 0.9% FLUSH 10 ML FLUSH IV FLUSH SCH ×2 (08:36→19:46)
[2017-03-24] MEDS: AZITHROMYCIN 250 MG TAB PO SCH (08:36)
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
[2017-03-24] MEDS: cefTRIAXone INJ 1,000 MG in SODIUM CHLORIDE 0.9% INJ 100 ML IV SCH (11:44)
[2017-03-24] MEDS: ENOXAPARIN SODIUM 40 MG/0.4 ML SYRINGE SQ SCH (11:44)
[2017-03-24] MEDS: ALPRAZolam 0.25 MG TAB PO PRN (11:46)
[2017-03-24] MEDS: NICOTINE 21 MG/24 HR PATCH T-DERMAL SCH (11:46)
[2017-03-24] MEDS: REMOVE OLD PATCH T-DERMAL SCH (19:47)
[2017-03-25] VITALS (10 sets, daily range): BP systolic 109–137; BP diastolic 63–76; PULSE 58–79; RESP 20–28; TEMP 97–98.5; O2SAT 91–97
[2017-03-25] MEDS: RESP: ALBUTEROL 2.5 MG/IPRATROPIUM 0.5 MG NEB (SCH) INH ×2 (03:49→09:35)
[2017-03-25] MEDS: CHLORHEXIDINE GLUCONATE 2 % 1 PACK (2 CLOTHS)(taper/protocol) TOPICAL SCH (04:00)
[2017-03-25] MEDS: methylPREDNISolone SOD SUCC 40 MG/1 ML VIAL IV SCH ×2 (06:46→14:02)
[2017-03-25] MEDS: INSULIN ASPART SUPPLEMENTAL SCALE SQ SCH ×4 (06:49→21:00)
[2017-03-25] MEDS: PREGABALIN 25 MG CAP PO SCH ×2 (07:31→22:16)
[2017-03-25] MEDS: AZITHROMYCIN 250 MG TAB PO SCH (07:31)
[2017-03-25] MEDS: NICOTINE 21 MG/24 HR PATCH T-DERMAL SCH (07:31)
[2017-03-25] MEDS: acetaZOLAMIDE 250 MG TAB PO SCH (07:31)
[2017-03-25] MEDS: ALPRAZolam 0.25 MG TAB PO PRN ×2 (07:32→16:51)
[2017-03-25] MEDS: metFORMIN HCL 500 MG TAB PO SCH ×2 (07:32→16:51)
[2017-03-25] MEDS: SODIUM CHLORIDE 0.9% FLUSH 10 ML FLUSH IV FLUSH SCH ×2 (07:32→22:17)
[2017-03-25] MEDS: cefTRIAXone INJ 1,000 MG in SODIUM CHLORIDE 0.9% INJ 100 ML IV SCH (10:52)
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
[2017-03-25] MEDS: ENOXAPARIN SODIUM 40 MG/0.4 ML SYRINGE SQ SCH (14:02)
[2017-03-25] MEDS: RESP: ALBUTEROL 2.5 MG/3 ML NEB (PRN) INH ×2 (16:50→21:43)
[2017-03-25] MEDS: REMOVE OLD PATCH T-DERMAL SCH (21:00)
[2017-03-25] MEDS: predniSONE 20 MG TAB PO SCH (22:16)
[2017-03-26] MEDS: CHLORHEXIDINE GLUCONATE 2 % 1 PACK (2 CLOTHS)(taper/protocol) TOPICAL SCH (04:00)
[2017-03-26] MEDS: ALPRAZolam 0.25 MG TAB PO PRN ×2 (05:19→21:29)
[2017-03-26] MEDS: RESP: ALBUTEROL 2.5 MG/3 ML NEB (PRN) INH (05:22)
[2017-03-26] MEDS: INSULIN ASPART SUPPLEMENTAL SCALE SQ SCH ×4 (07:00→21:00)
[2017-03-26] MEDS: acetaZOLAMIDE 250 MG TAB PO SCH (08:54)
[2017-03-26] MEDS: metFORMIN HCL 500 MG TAB PO SCH ×2 (08:55→17:10)
[2017-03-26] MEDS: PREGABALIN 25 MG CAP PO SCH ×2 (08:55→21:29)
[2017-03-26] MEDS: predniSONE 20 MG TAB PO SCH ×2 (08:55→21:29)
[2017-03-26] MEDS: NICOTINE 21 MG/24 HR PATCH T-DERMAL SCH (08:57)
[2017-03-26] MEDS: SODIUM CHLORIDE 0.9% FLUSH 10 ML FLUSH IV FLUSH SCH ×2 (08:57→21:29)
[2017-03-26 09:04] VITALS: BP 112/64; PULSE 67; RESP 16; TEMP 96.8; O2SAT 96
[2017-03-26 09:49] VITALS: O2SAT 94
[2017-03-26 11:54] VITALS: BP 108/73; PULSE 68; RESP 16; TEMP 98; O2SAT 96
[2017-03-26] MEDS: ENOXAPARIN SODIUM 40 MG/0.4 ML SYRINGE SQ SCH (12:38)
[2017-03-26] MEDS: LEVOFLOXACIN 750 MG TAB PO SCH (12:38)
--- NOTE | 2017-03-26 13:37 | HHI.PR ---
Subjective Remarks Patient evaluated earlier. Follow-up for pneumonia, COPD. Patient states his breathing is "excellent". He denies any wheezing. He is currently on 3 L O2. States he was cold but denies any fevers or chills. Objective Vitals Vital Signs Date Time Temp Pulse Resp B/P (MAP) Pulse Ox O2 Delivery O2 Flow Rate FiO2 03/26/17 11:54 98.0 68 16 108/73 (85) 96 03/26/17 09:49 94 Nasal Cannula 3.00 03/26/17 09:12 Room Air 03/26/17 09:04 96.8 67 16 112/64 (80) 96 03/25/17 21:47 92 Nasal Cannula 3.00 03/25/17 20:00 98.5 77 20 129/68 (88) 96 03/25/17 20:00 96 Nasal Cannula 3.00 03/25/17 16:00 98.0 77 22 128/76 (93) 96 03/25/17 16:00 96 Nasal Cannula 3.00 Humidified I/O 03/25/17 03/25/17 03/25/17 03/26/17 03/26/17 03/26/17 07:00 15:00 23:00 07:00 15:00 23:00 Intake Total 120 ml 500 ml 240 ml Output Total 400 ml 950 ml 1000 ml Balance -280 ml -450 ml -760 ml Intake Oral 120 ml 500 ml 240 ml Output Urine Total 400 ml 950 ml 1000 ml # Bowel Movements 0 0 Result Diagram: 03/22/17 0430 03/22/17 043 Objective Remarks GENERAL: Well-nourished, well-developed patient in no apparent distress sitting on side of bed brushing his teeth. SKIN: Warm and dry. Lower legs appear less erythematous. HEAD: Atraumatic. Normocephalic. CARDIOVASCULAR: Regular rate and rhythm. RESPIRATORY: No accessory muscle use. Clear to auscultation bilaterally but breath sounds decreased throughout most of lungs, likely chronic. GASTROINTESTINAL: Abdomen soft, non-tender. MUSCULOSKELETAL: No pretibial edema bilaterally. NEUROLOGICAL: Awake and alert. Normal speech. PSYCHIATRIC: Appropriate mood and affect; insight and judgment normal. Urinary Catheter: No Vascular Central Line Catheter: No A/P Problem List: (1) Chronic respiratory failure with hypoxia, on home O2 therapy ICD Code: J96.11 - Chronic respiratory failure with hypoxia; Z99.81 - Dependence on supplemental oxygen (2) Respiratory acidosis ICD Code: E87.2 - Acidosis (3) COPD exacerbation ICD Code: J44.1 - Chronic obstructive pulmonary disease with (acute) exacerbation (4) Pneumonia ICD Code: J18.9 - Pneumonia, unspecified organism (5) Hypochloremia ICD Code: E87.8 - Other disorders of electrolyte and fluid balance, not elsewhere classified (6) Acute and chronic respiratory failure ICD Code: J96.20 - Acute and chronic respiratory failure, unspecified whether with hypoxia or hypercapnia (7) Encephalopathy acute ICD Code: G93.40 - Encephalopathy, unspecified Assessment and Plan 66-year-old male with: Acute on Chronic respiratory failure with hypoxia and hypercapnia, respiratory acidosis - much improved. Status post BiPAP. COPD exacerbation/with left-sided pneumonia -Patient has COPD and uses 6 L at home, ran out of oxygen at home prompting his drive to the hospital. Now on 3 L nasal cannula. -Pulmonology following. -Status post azithromycin and ceftriaxone - changed to Levaquin by mouth for a total of 10 days of antibiotics. -S/p Solu-Medrol. Now on po prednisone 20 mg bid. Will need 3-4 more days. -DuoNeb's every 6 hours. Patient has not had a breathing treatment since yesterday morning as order and lungs are clear. Will continue Duonebs as needed. -CPAP at night and as needed per pulm Encephalopathy, confusion - Resolved. Was likely secondary to the hypoxia. Type 2 diabetes: Stable -Continue metformin -Bedside Accu-Cheks with low dose sliding scale insulin -03/26: BGLs well controlled. No SSI yesterday evening or today. DVT prophylaxis: Lovenox 40 mg sq daily. Discussed patient with Dr. Dupree. Discharge Planning 03/26: Stable for discharge; to be discharged once oxygen arranged. I spoke with sample case porter Eun who will assure the patient has oxygen at home. She states she [facility] Per physical therapist, patient does not require walker or home health PT. No need for [facility] nursing. Patient states he has a nebulizer machine and boxes of Duonebs at home. Pharmacies not open this morning. If they remain closed, inpatient pharmacy here can dispense antibiotics and prednisone patient will need on discharge. Sepideh Zhang Mar 26, 2017 13:37
[2017-03-26] MEDS ORDERED: RESP: ALBUTEROL 2.5 MG/IPRATROPIUM 0.5 MG NEB (PRN) NEB (15:00)
[2017-03-26] MEDS ORDERED: LEVA750T9 PO (15:21)
[2017-03-26] MEDS ORDERED: PRED20 PO (15:21)
--- NOTE | 2017-03-26 15:22 | HHI.DCPOC ---
Discharge Care Plan Diagnosis: (1) Chronic respiratory failure with hypoxia, on home O2 therapy (2) Pneumonia (3) COPD exacerbation (4) Respiratory acidosis (5) Encephalopathy acute (6) Hypochloremia Your Health Problems Are: Shortness of Breath Goals to Promote Your Health * To prevent worsening of your condition and complications * To maintain your health at the optimal level Directions to Meet Your Goals Take your medications as prescribed Follow your dietary instruction Follow activity as directed Keep your appointments as scheduled Take your immunizations and boosters as scheduled If your symptoms worsen call your PCP, if no PCP go to Urgent Care Center or Emergency Room Smoking is Dangerous to Your Health. Avoid second hand smoke Call the 24-hour hour crisis hotline for domestic abuse at Sepideh Zhang Mar 26, 2017 15:22
--- NOTE | 2017-03-26 15:27 | HHI.FF ---
Face to Face Verification Diagnosis: (1) Chronic respiratory failure with hypoxia, on home O2 therapy (2) COPD exacerbation (3) Pneumonia Home Health Nursing Order: Medical education Signs/symptoms of disease process Oxygen administration education (reinforce; patient already on O2 at home) Medication education-adverse effect Nursing assessment with vital signs Instructions: ensure patient is compliant with medications I have seen patient Deven Amador on 03/26/17. My clinical findings support the need for the requested home health care services because: Med compliance is questionable I certify that my clinical findings support that this patient is homebound because: Hx COPD- exertion dyspnea/weakness Unsafe to leave home unassisted Sepideh Zhang Mar 26, 2017 15:26
[2017-03-26 16:15] VITALS: BP 124/74; PULSE 65; RESP 20; TEMP 97.8; O2SAT 96
[2017-03-26 19:25] VITALS: O2SAT 97
[2017-03-26 20:00] VITALS: BP 113/60; PULSE 70; RESP 20; TEMP 97.4; O2SAT 96
[2017-03-26] MEDS: REMOVE OLD PATCH T-DERMAL SCH (21:00)
[2017-03-27] MEDS: INSULIN ASPART SUPPLEMENTAL SCALE SQ SCH ×3 (07:30→16:00)
[2017-03-27 08:00] VITALS: BP 136/66; PULSE 66; RESP 18; TEMP 95; O2SAT 97
[2017-03-27] MEDS: SODIUM CHLORIDE 0.9% FLUSH 10 ML FLUSH IV FLUSH SCH (09:00)
[2017-03-27 09:16] VITALS: O2SAT 97
[2017-03-27] MEDS: PREGABALIN 25 MG CAP PO SCH (09:26)
[2017-03-27] MEDS: LEVOFLOXACIN 750 MG TAB PO SCH (09:26)
[2017-03-27] MEDS: NICOTINE 21 MG/24 HR PATCH T-DERMAL SCH (09:26)
[2017-03-27] MEDS: acetaZOLAMIDE 250 MG TAB PO SCH (09:26)
[2017-03-27] MEDS: predniSONE 20 MG TAB PO SCH (09:26)
[2017-03-27] MEDS: metFORMIN HCL 500 MG TAB PO SCH ×2 (09:26→17:37)
[2017-03-27] MEDS: ALPRAZolam 0.25 MG TAB PO PRN (10:54)
[2017-03-27] MEDS: ENOXAPARIN SODIUM 40 MG/0.4 ML SYRINGE SQ SCH (10:57)
[2017-03-27 12:00] VITALS: BP 105/67; PULSE 88; RESP 18; TEMP 98.9; O2SAT 98
--- NOTE | 2017-03-27 12:35 | HHI.PR ---
Subjective Remarks Patient states he's feeling fine, at baseline. Discharge pending [facility] the [facility]. Objective Vitals Vital Signs Date Time Temp Pulse Resp B/P (MAP) Pulse Ox O2 Delivery O2 Flow Rate FiO2 03/27/17 09:54 95 Nasal Cannula 3.00 03/27/17 09:16 97 Nasal Cannula 3.00 03/26/17 20:00 97.4 70 20 113/60 (77) 96 03/26/17 20:00 96 Nasal Cannula 3.00 03/26/17 19:25 97 Nasal Cannula 3.00 03/26/17 16:15 97.8 65 20 124/74 (91) 96 I/O 03/26/17 03/26/17 03/26/17 03/27/17 03/27/17 03/27/17 07:00 15:00 23:00 07:00 15:00 23:00 Intake Total 240 ml 0 ml 100 ml Output Total 1000 ml 1250 ml Balance -760 ml -1250 ml 100 ml Intake Oral 240 ml 0 ml IV Total 100 ml Output Urine Total 1000 ml 1250 ml # Voids 4 Objective Remarks GENERAL: Well-nourished, well-developed male patient in no apparent distress SKIN: Warm and dry. HEAD: Normocephalic. EYES: No scleral icterus. No injection or drainage. NECK: Supple, trachea midline. No JVD or lymphadenopathy. CARDIOVASCULAR: Regular rate and rhythm without murmurs, gallops, or rubs. RESPIRATORY: Breath sounds equal bilaterally. Mild end expiratory wheeze. Crackles on the left lower and midlung field. No accessory muscle use. GASTROINTESTINAL: Abdomen soft, non-tender, nondistended. EXTREMITIES: No cyanosis, or edema. Neurological: Awake alert and oriented. A/P Problem List: (1) Chronic respiratory failure with hypoxia, on home O2 therapy ICD Code: J96.11 - Chronic respiratory failure with hypoxia; Z99.81 - Dependence on supplemental oxygen (2) Respiratory acidosis ICD Code: E87.2 - Acidosis (3) COPD exacerbation ICD Code: J44.1 - Chronic obstructive pulmonary disease with (acute) exacerbation (4) Pneumonia ICD Code: J18.9 - Pneumonia, unspecified organism (5) Hypochloremia ICD Code: E87.8 - Other disorders of electrolyte and fluid balance, not elsewhere classified (6) Acute and chronic respiratory failure ICD Code: J96.20 - Acute and chronic respiratory failure, unspecified whether with hypoxia or hypercapnia (7) Encephalopathy acute ICD Code: G93.40 - Encephalopathy, unspecified Assessment and Plan 66-year-old male with: Acute on Chronic respiratory failure with hypoxia and hypercapnia, respiratory acidosis - much improved. Status post BiPAP. COPD exacerbation/with left-sided pneumonia -Patient has COPD and uses 6 L at home, ran out of oxygen at home prompting his drive to the hospital. Now on 3 L nasal cannula. -Pulmonology following. Continue BiPAP when necessary. -Status post 3 days azithromycin and ceftriaxone -continue to Levaquin by mouth , total 10 days treatment. -DuoNeb's every 6 hours -Continue prednisone. Encephalopathy, confusion - resolved. Was likely secondary to the hypoxia. Head CT was negative. Type 2 diabetes: -resume metformin -Bedside Accu-Cheks with low dose sliding scale insulin DVT prophylaxis: Lovenox 40 mg sq daily. Discharge Planning Discharge home once home oxygen arranged. Linn Dupree MD Mar 27, 2017 12:35
--- NOTE | 2017-03-27 15:20 | HHI.PR ---
Subjective Remarks 66 YOWM with COPD,DM,HTN used CPAP last night Up in chair no fever No CP Anxious to go home paces around in the room Objective Vital Signs Vital Signs Date Time Temp Pulse Resp B/P (MAP) Pulse Ox O2 Delivery O2 Flow Rate FiO2 03/27/17 12:00 98.9 88 18 105/67 (80) 98 03/27/17 09:54 95 Nasal Cannula 3.00 03/27/17 09:16 97 Nasal Cannula 3.00 03/26/17 20:00 97.4 70 20 113/60 (77) 96 03/26/17 20:00 96 Nasal Cannula 3.00 03/26/17 19:25 97 Nasal Cannula 3.00 03/26/17 16:15 97.8 65 20 124/74 (91) 96 I/O 03/26/17 03/26/17 03/26/17 03/27/17 03/27/17 03/27/17 07:00 15:00 23:00 07:00 15:00 23:00 Intake Total 240 ml 0 ml 100 ml Output Total 1000 ml 1250 ml Balance -760 ml -1250 ml 100 ml Intake Oral 240 ml 0 ml IV Total 100 ml Output Urine Total 1000 ml 1250 ml # Voids 4 Objective Remarks GENERAL: MBMN WM mild sob SKIN: Warm and dry. HEAD: Normocephalic. EYES: No scleral icterus. No injection or drainage. NECK: Supple, trachea midline. No JVD or lymphadenopathy. CARDIOVASCULAR: Regular rate and rhythm without murmurs, gallops, or rubs. RESPIRATORY: Breath sounds equal bilaterally. No accessory muscle use. GASTROINTESTINAL: Abdomen soft, non-tender, nondistended. MUSCULOSKELETAL: No cyanosis, or edema. BACK: Nontender without obvious deformity. No CVA tenderness. A/P Assessment and Plan Hypercapnoic RF improving COPD exac Pneumonia DM HTN PLAN: CPAP at night and prn Supplement 02 to keep sat 88-92% Pred 20 mg po bid Cont Abx monitor BS Saline NS Home 02 DC plans for home Alon Mendez MD Mar 27, 2017 15:20
--- NOTE | 2017-05-04 09:24 | HHI.DS ---
Discharge Summary Admission Date Mar 21, 2017 at 11:15 Discharge Date: Apr 26, 2017 Admitting Diagnosis copd (1) Chronic respiratory failure with hypoxia, on home O2 therapy ICD Code: J96.11 - Chronic respiratory failure with hypoxia; Z99.81 - Dependence on supplemental oxygen (2) Respiratory acidosis ICD Code: E87.2 - Acidosis (3) COPD exacerbation ICD Code: J44.1 - Chronic obstructive pulmonary disease with (acute) exacerbation (4) Pneumonia ICD Code: J18.9 - Pneumonia, unspecified organism (5) Hypochloremia ICD Code: E87.8 - Other disorders of electrolyte and fluid balance, not elsewhere classified (6) Acute and chronic respiratory failure ICD Code: J96.20 - Acute and chronic respiratory failure, unspecified whether with hypoxia or hypercapnia (7) Encephalopathy acute ICD Code: G93.40 - Encephalopathy, unspecified Procedures none Brief History - From Admission Written by Sepideh Zhang PA-C acting as scribe for Dr. uDpree on 03/21/17 at ~ 1640. Patient is a 66-year-old male with history of COPD on O2 at home, type 2 diabetes, hypertension, diabetic neuropathy who presents with complaint that he ran out of his oxygen. When asked how much oxygen he uses at home he states " as high as you can get it". It was reported that the patient uses 6 L at home. The patient states he goes to [place] clinic. He states there was a problem with the delivery of O2 and he was delivered empty tanks and hence ran out. He admits to a mild cough and states he had some foaming from his mouth but denies real sputum production. Denies any fevers or chills. He states he had some nausea but denies any vomiting. He admits to tingling in his toes which is chronic. RN reports the patient has been confused when taken off of bipap on NC but states he is improved from earlier. PE at Discharge GENERAL: Well-nourished, well-developed patient in no apparent distress sitting on side of bed brushing his teeth. SKIN: Warm and dry. Lower legs appear less erythematous. HEAD: Atraumatic. Normocephalic. CARDIOVASCULAR: Regular rate and rhythm. RESPIRATORY: No accessory muscle use. Clear to auscultation bilaterally but breath sounds decreased throughout most of lungs, likely chronic. GASTROINTESTINAL: Abdomen soft, non-tender. MUSCULOSKELETAL: No pretibial edema bilaterally. NEUROLOGICAL: Awake and alert. Normal speech. PSYCHIATRIC: Appropriate mood and affect; insight and judgment normal. Hospital Course Acute on Chronic respiratory failure with hypoxia and hypercapnia, respiratory acidosis - much improved. Status post BiPAP. COPD exacerbation/with left-sided pneumonia -Patient has COPD and uses 6 L at home, ran out of oxygen at home prompting his drive to the hospital. Now on 3 L nasal cannula. -Pulmonology following. Continue BiPAP when necessary. -Status post 3 days azithromycin and ceftriaxone -continue to Levaquin by mouth , total 10 days treatment. -DuoNeb's every 6 hours -Continue prednisone. Encephalopathy, confusion - resolved. Was likely secondary to the hypoxia. Head CT was negative. Type 2 diabetes: -resume metformin -Bedside Accu-Cheks with low dose sliding scale insulin Pt Condition on Discharge: Stable Discharge Disposition: Disch w/ Home Health Serv Discharge Time: <= 30 minutes Discharge Instructions DIET: Follow Instructions for: Heart Healthy Diet, Diabetic Diet Activities you can perform: See Additionl Instruction Other Activity Instructions: activity as tolerated Follow up Referrals: PCP Follow-up - 2-3 Days with [facility] - 1 Week New Medications: Levofloxacin (Levaquin) 750 Mg Tablet 750 MG PO DAILY@1100 for Infection, #5 TAB Start on 03/27/17 Prednisone (Prednisone) 20 Mg Tab 20 MG PO BID for Inflammation, #7 TAB Continued Medications: Cyclosporine Opth 0.05% (Restasis Opth 0.05%) 0.05% Emul 1 DROP EACH EYE BID PRN for DRY EYE, #1 BOX 0 Refills Metformin (Metformin) 500 Mg Tab 500 MG PO BIDPC for Blood Sugar Management, #60 TAB 0 Refills With meals Pregabalin (Lyrica) 25 Mg Cap 25 MG PO BID, #60 CAP 0 Refills Discontinued Medications: Ibuprofen (Ibuprofen) 600 Mg Tab 600 MG PO Q8HR PRN for PAIN, #20 TAB 0 Refills Oxycodone-Acetaminophen (Percocet) 5-325 mg Tab 1 TAB PO Q6H PRN for PAIN, #7 TAB 0 Refills Linn Durpee MD May 04, 2017 09:24
== END 2017-03-27 18:33 | disposition home health service (06) | DRG 189 ==
LOC: PHED 06:55 → PHEDA 11:15 → PHICU 13:05 → PH3A 03-25 09:04
PROVIDERS: ADMIT Hospitalist; ATTEND Hospitalist
PROC: 5A09457 Assistance with Respiratory Ventilation, 24-96 Consecutive Hours, Continuous Positive Airway Pressure (ICD-10-PCS; principal; 2017-03-21)
DX: J96.21 Acute and chronic respiratory failure with hypoxia (principal); J44.1 Chronic obstructive pulmonary disease with (acute) exacerbation; G93.40 Encephalopathy, unspecified; J18.9 Pneumonia, unspecified organism; E87.2 Acidosis; J44.0 Chronic obstructive pulmonary disease with (acute) lower respiratory infection; J96.22 Acute and chronic respiratory failure with hypercapnia; Z99.81 Dependence on supplemental oxygen; I10 Essential (primary) hypertension; E11.40 Type 2 diabetes mellitus with diabetic neuropathy, unspecified; F17.200 Nicotine dependence, unspecified, uncomplicated; E87.8 Other disorders of electrolyte and fluid balance, not elsewhere classified
CPT/HCPCS: 36600; 71010; 80048; 80053; 82805; 82948; 83880; 84484; 85025; 87641; 94002; 94003; 94640; 94664; 96365; 96375; J0456; J0696; J1650; J1815; J2920; J2930; J7050; J7512; J7613